=== PATIENT | female | born 1985 ===

== ENCOUNTER 2018-03-13 12:34 | Emergency (ER) | payer SELFPAY ==
[2018-03-13 12:52] VITALS: RESP 18; TEMP 98.8; BMI 32.8
[2018-03-13] MEDS ORDERED: Alum-Mag Hydrox-Simethicone Susp (30 mL) PO STA (13:10)
--- NOTE | 2018-03-13 13:18 | ED PDOC ---
Arrival/HPI - General Chief Complaint: Abdominal Pain Time Seen by Provider: 03/13/18 13:09 Historian: Patient - History of Present Illness Narrative History of Present Illness (Text): 03/13/18 13:11 Patient is a 32 year old female, who presents to the Emergency Department complaining of epigastric pain that started last night. Patient reports that she is 6 months , and had an ultrasound just yesterday, which showed the fetus was ok. In the evening she started experiencing epigastric pain which radiates throughout her abdomen and back. Patient admits that she experienced similar symptoms approximately 3 weeks ago, which subsequently resolved two days later. She denies any nausea, vomiting, dysuria, bleeding, or any other complaints at this time. Of note patient denies having a history of gastritis or GERD, and denies any current medical problems. Time/Duration: 24 hours (last night) Symptom Onset: Gradual Symptom Course: Unchanged Context: Home Past Medical History - Provider Review Nursing Documentation Reviewed: Yes - Infectious Disease Hx of Infectious Diseases: None - Reproductive Menopause: No - Psychiatric Hx Psychophysiologic Disorder: No Hx Substance Use: No - Anesthesia Hx Anesthesia: No Hx Anesthesia Reactions: No Hx Malignant Hyperthermia: No Family/Social History - Physician Review Nursing Documentation Reviewed: Yes Family/Social History: No Known Family HX Smoking Status: Never Smoked Hx Alcohol Use: No Hx Substance Use: No Allergies/Home Meds Allergies/Adverse Reactions: Allergies No Known Allergies Allergy (Verified 03/13/18 13:10) Review of Systems - Physician Review All systems were reviewed & negative as marked: Yes - Review of Systems Gastrointestinal: absent: Nausea Genitourinary Female: absent: Dysuria Physical Exam - Physical Exam Narrative Physical Exam (Text): 03/13/18 13:18 Constitutional: No acute distress. Head: Normocephalic. Atraumatic. Eyes: PERRL. ENT: Moist mucous membranes. Neck: Supple. Cardiovascular: Regular rate. Chest: No tenderness. Respiratory: Clear to auscultation bilaterally. GI: Soft. No Guarding. No Rebound. (+) Epigastric tenderness. Genitourinary: (+)Gravid uterus. Back: No CVA tenderness. Musculoskeletal: No tenderness or swelling of extremities. Skin: No rash. Neurologic: Alert, no focal deficit. Vital Signs Reviewed: Yes Vital Signs Temp Pulse Resp BP Pulse Ox 03/13/18 15:30 79 18 118/65 99 03/13/18 14:14 86 18 121/61 99 03/13/18 12:47 98.8 F 98 H 18 122/68 99 Temperature: Afebrile Blood Pressure: Normal Pulse: Regular Respiratory Rate: Normal Appearance: Positive for: Well-Appearing Mental Status: Positive for: Alert and Oriented X 3 Medical Decision Making ED Course and Treatment: 03/13/18 13:20 Impression: Patient is a 32 year old female who is and complaining of epigastric pain radiating to throughout abdomen and her back. Differential Diagnosis included but are not limited to: Gastritis vs. Cholecystitis vs. Nonspecific pain related to . Plan: -- Labs -- Blood work -- Urinalysis and urine culture -- Abdomen US -- Pepcid -- Maalox -- Reassess and disposition Progress Notes: 03/13/18 14:46 Abdominal US: Dictated by: Dr.Edward Robbin MD IMPRESSION: Unremarkable abdominal sonogram. 03/13/18 15:25 Patient states she feels "much better" after Pepcid and Maalox. No fever, CVA tenderness, or dysuria. Discussed case with who in the absence of significant symptoms of pyelonephritis thinks admission is not indicated but does agree with Ceftriaxone IV once here and discharge on Bactrim for 5 days. I instructed the patient to return to the ED immediately for any fever, vomiting, dyspnea, dysuria, worsening back pain, or any other problem. - Lab Interpretations Lab Results: 03/13/18 13:17 03/13/18 13:17 Lab Results 03/13/18 14:40: Urine Color Light yellow, Urine Appearance Slight-cloudy, Urine pH 6.0, Ur Specific [place] 1.010, Urine Protein Negative, Urine Glucose (UA) Negative, Urine Ketones Negative, Urine Blood Negative, Urine Nitrate Negative, Urine Bilirubin Negative, Urine Urobilinogen 0.2, Ur Leukocyte Esterase Small H , Urine RBC 0 - 2, Urine WBC 2 - 5, Ur Epithelial Cells 3 - 4, Urine Bacteria Small 03/13/18 13:17: Sodium 137, Potassium 4.0, Chloride 108 H, Carbon Dioxide 21, Anion Gap 12, BUN 5 L, Creatinine 0.4 L, Est GFR ( Amer) > 60, Est GFR ( Non-Af Amer) > 60, Random Glucose 95, Calcium 8.9, Total Bilirubin 0.7, AST 21, ALT 17, Alkaline Phosphatase 104, Total Protein 7.0, Albumin 3.6, Globulin 3.4, Albumin/Globulin Ratio 1.1, Lipase 76 03/13/18 13:17: WBC 14.0 H, RBC 3.74, Hgb 10.3 L, Hct 31.0 L, MCV 82.9, MCH 27.5 , MCHC 33.2, RDW 13.7, Plt Count 360, MPV 9.5, Gran % 79.6 H, Lymph % (Auto) 14.4 L, [place] % (Auto) 4.2, Eos % (Auto) 1.7, Baso % (Auto) 0.1, Gran # 11.09 H, Lymph # (Auto) 2.0, [place] # (Auto) 0.6, Eos # (Auto) 0.2, Baso # (Auto) 0.02 I have reviewed the lab results: Yes - RAD Interpretation Radiology Orders: 03/13/18 13:11 ABDOMEN COMPLETE [US] Stat Representative Phlebotomy Services: Radiologist - Medication Orders Current Medication Orders: Ceftriaxone Sodium (Rocephin 1 Gram Ivpb) 1 gm in 100 mls @ 100 mls/hr IVPB STAT STA PRN Reason: Protocol Stop: 03/13/18 16:33 Last Admin: 03/13/18 16:06 Dose: 100 mls/hr Discontinued Medications Al Hydrox/Mg Hydrox/Simethicone (Maalox Plus 30 Ml) 30 ml PO STAT STA Stop: 03/13/18 13:11 Last Admin: 03/13/18 13:46 Dose: 30 ml Famotidine (Pepcid) 20 mg IVP STAT STA Stop: 03/13/18 13:11 Last Admin: 03/13/18 13:46 Dose: 20 mg IVP Administration Document 03/13/18 13:46 SF (Rec: 03/13/18 13:46 SF [facility] [id number]) Charges for Administration # of IVP Administrations 1 - Scribe Statement The provider has reviewed the documentation as recorded by the Scribe Minor Gonzalez Provider Scribe Attestation: All medical record entries made by the Scribe were at my direction and personally dictated by me. I have reviewed the chart and agree that the record accurately reflects my personal performance of the history, physical exam, medical decision making, and the department course for this patient. I have also personally directed, reviewed, and agree with the discharge instructions and disposition. Disposition/Present on Arrival - Present on Arrival Any Indicators Present on Arrival: No History of DVT/PE: No History of Uncontrolled Diabetes: No Urinary Catheter: No History of Decub. Ulcer: No History Surgical Site Infection Following: None - Disposition Have Diagnosis and Disposition been Completed?: Yes Diagnosis: Abdominal pain in Disposition: HOME/ ROUTINE Disposition Time: 15:34 Patient Plan: Discharge Patient Problems: Current Active Problems Problem Status Onset Abdominal pain in Acute Condition: STABLE Discharge Instructions (ExitCare): Kidney Infection, Gastritis Prescriptions: Famotidine/Ca Carb/Mag Hydrox [Pepcid Complete Tablet Chew] 1 each PO BID #28 tab.chew Sulfamethoxazole/Trimethoprim [Bactrim DS 800 mg-160 mg] 1 tab PO BID #10 tab Referrals: Haylie Muller [Primary Care Provider] - Follow up with primary Forms: [employer] (Persian)
[2018-03-13 13:20] LABS: BASO # 0.02 K/mm3 (0.0-2.0); BASO % 0.1 % (0.0-3.0); EOS # 0.2 (0.0-0.7); EOS % 1.7 % (1.5-5.0); GRAN # 11.09 (1.4-6.5); GRAN % 79.6 % (50.0-68.0); HEMOGLOBIN 10.3 g/dL (12.0-16.0); LYMPH % 14.4 % (22.0-35.0); MEAN CELL VOLUME 82.9 fl (80.0-105.0); MEAN CORPUSCULAR HEMOGLOBIN 27.5 pg (25.0-35.0); MEAN CORPUSCULAR HGB CONC 33.2 g/dl (31.0-37.0); MEAN PLATELET VOLUME 9.5 fl (7.0-11.0); MONO # 0.6 (0.1-0.6); MONO % 4.2 % (1.0-6.0); RBC 3.74 10^6/uL (3.5-6.1); RED CELL DISTRIBUTION WIDTH 13.7 % (11.5-14.5)
[2018-03-13 13:30] LABS: ALB/GLOB RATIO 1.1 (1.1-1.8); ALBUMIN 3.6 g/dL (3.0-4.8); ALT/SGPT 17 U/L (7-56); AST/SGOT 21 U/L (14-36); BLOOD UREA NITROGEN 5 mg/dL (7-21); CALCIUM 8.9 mg/dL (8.4-10.5); GFR AFRICAN-AMERICAN > 60; GFR NON-AFRICAN AMERICAN > 60; LIPASE 76 U/L (23-300)
--- NOTE | 2018-03-13 14:41 | US ---
Date of service: 03/13/2018 HISTORY: 6 mo preg, upper abd pain COMPARISON: None. TECHNIQUE: Sonographic evaluation of the abdomen. FINDINGS: LIVER: Measures 15.23 x 10.33 x 19.35 cm. Normal echogenicity of the liver parenchyma. No mass. No intrahepatic bile duct dilatation. GALLBLADDER: Unremarkable. No gallstones. COMMON BILE DUCT: Measures 3 mm. No stones. No dilatation. PANCREAS: Unremarkable as visualized. No mass. No ductal dilatation. RIGHT KIDNEY: Measures 11 x 5.35 x 6.23cm. Normal echogenicity. No calculus, mass, or hydronephrosis. LEFT KIDNEY: Measures 10.22 x 5.89 x 5.29cm. Normal echogenicity. No calculus, mass, or hydronephrosis. SPLEEN: Normal in size and contour. No mass. 10.17 x 4.46 x 7.83 cm AORTA: No aneurysmal dilatation. IVC: Unremarkable. OTHER FINDINGS: None. IMPRESSION: Unremarkable abdominal sonogram.
[2018-03-13 14:55] LABS: URINE BILIRUBIN NEGATIVE (NEGATIVE); URINE BLOOD NEGATIVE (NEGATIVE); URINE GLUCOSE (UA) NEGATIVE (NEGATIVE); URINE LEUKOCYTE ESTERASE SMALL Leu/uL (NEGATIVE); URINE PROTEIN NEGATIVE mg/dL (<30 mg/dL); URINE UROBILINOGEN 0.2 E.U./dL (<1 E.U./dL)
[2018-03-13 14:56] LABS: URINE APPEARANCE SLIGHT-CLOUDY (CLEAR); URINE COLOR LIGHT YELLOW (YELLOW)
[2018-03-13 15:06] LABS: URINE BACTERIA SMALL (NEG); URINE RBC 0 - 2 /hpf (0-2)
[2018-03-13] MEDS ORDERED: cefTRIAXone 1 gm 1 GM/100 ML BAG IVPB STA (15:34)
[2018-03-13 16:48] VITALS: BP 120/75; PULSE 75; O2SAT 100
== END 2018-03-13 16:48 | disposition home or self-care (01) ==
LOC: ED 12:34
DX: O26.892 Other specified pregnancy related conditions, second trimester (principal); Z3A.24 24 weeks gestation of pregnancy; R10.13 Epigastric pain
CPT/HCPCS: 76700; 80053; 81001; 83690; 85025; 87086; 96365; 96375; 99285; J0696